=== PATIENT | male | born 2000 | race Caucasian/White ===

== ENCOUNTER 2019-03-11 09:32 | Emergency (ER) | payer SELFPAY | END 2019-03-11 10:16 | disposition left against medical advice (07) | LOC: JD.ED 09:32 | DX: Z53.21 Procedure and treatment not carried out due to patient leaving prior to being seen by health care provider (principal) | CPT/HCPCS: 99285-25 ==

== ENCOUNTER 2019-03-11 11:15 | Emergency (ER) | payer OTHER ==
--- NOTE | 2019-03-11 12:18 | EDM.PDOC ---
ED HPI GENERAL MEDICAL PROBLEM - General Chief Complaint: Chest Pain Stated Complaint: CHEST PAIN Time Seen by Provider: 03/11/19 11:34 Source of Information: Reports: Patient History Limitations: Reports: No Limitations - History of Present Illness INITIAL COMMENTS - FREE TEXT/NARRATIVE: 18 y/o male presents to ER with cc chest pain. He reports it started last evening about 0100 and lasted about 2 hours. He reports the pain as a sharp pain on the left side of his chest. He states it felt like his was racing then it would slow down and speed up again. It did not radiate to his jaw or back. He states it was difficulty to take a deep breath. He denies any nausea, vomiting, light headedness. Nothing made it better or worse. He has not experience the pain before. He does not have a history of sudden cardiac . He denies any use of recreational drugs. He does admit to smoking one pack daily and drinks energy drinks like BANG. 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 He is accompany by his friend. He reports the pain was a 7/10 prior to arrival but has since resolved. Onset Date: 03/10/19 Onset Time: 01:00 Duration: Intermittent Location: Reports: Chest Quality: Reports: Stabbing Severity: Mild Improves with: Reports: None Worsens with: Reports: Breathing Context: Reports: Activity Associated Symptoms: Denies: Confusion, Cough, Diaphoresis, Fever/Chills, Nausea /Vomiting, Shortness of Breath, Syncope Left Chest Pain Score (Numeric/FACES): 8 - Related Data Allergies Allergy/AdvReac Type Severity Reaction Status Date / Time No Known Allergies Allergy Verified 03/11/19 11:28 Home Meds: Home Meds . [No Known Home Meds] 03/11/19 [History] Past Medical History - Past Health History Medical/Surgical History: Denies Medical/Surgical History Social & Family History - Tobacco Use Smoking Status *Q: Current Every Day Smoker Years of Tobacco use: 2 Packs/Tins Daily: 1 - Caffeine Use Caffeine Use: Reports: Energy Drinks ED ROS GENERAL - Review of Systems Review Of Systems: See Below Constitutional: Denies: Fever, Chills HEENT: Reports: No Symptoms Respiratory: Denies: Shortness of Breath Cardiovascular: Reports: Chest Pain Endocrine: Reports: No Symptoms GI/Abdominal: Reports: No Symptoms : Reports: No Symptoms Musculoskeletal: Reports: No Symptoms Skin: Reports: No Symptoms Neurological: Reports: No Symptoms Psychiatric: Reports: Anxiety Hematologic/Lymphatic: Reports: No Symptoms Immunologic: Reports: No Symptoms ED EXAM, GENERAL - Physical Exam Exam: See Below Exam Limited By: No Limitations General Appearance: Alert, WD/WN, No Apparent Distress Neck: Normal Inspection, Supple, Non-Tender Respiratory/Chest: No Respiratory Distress, Lungs Clear, Normal Breath Sounds, No Accessory Muscle Use, Chest Non-Tender Cardiovascular: Normal Peripheral Pulses, Regular Rate, Rhythm, No Edema, No Gallop, No JVD, No Murmur, No Rub GI/Abdominal: Normal Bowel Sounds, Soft, Non-Tender, No Organomegaly, No Distention, No Abnormal Bruit, No Mass, Pelvis Stable Back Exam: Normal Inspection, Full Range of Motion Extremities: Normal Inspection, Normal Range of Motion, Non-Tender, No Pedal Edema, Normal Capillary Refill Neurological: Alert, Oriented, CN II-XII Intact, Normal Cognition, Normal Gait, Normal Reflexes, No Motor/Sensory Deficits Psychiatric: Normal Affect, Normal Mood Skin Exam: Warm, Dry, Intact, Normal Color, No Rash Lymphatic: No Adenopathy EKG INTERPRETATION EKG Date: 03/11/19 Time: 12:12 Rhythm: NSR Rate (Beats/Min): 78 [place]: Normal QRS: Normal ST-T: Normal QT: Normal Course - Vital Signs Last Recorded V/S: Last Vital Signs Temp 98.5 F 03/11/19 11:29 Pulse 72 03/11/19 11:29 Resp 16 03/11/19 11:29 BP 125/79 03/11/19 11:29 Pulse Ox 100 03/11/19 11:29 - Orders/Labs/Meds Orders: Active Orders 24 hr Category Date Time Status EKG Documentation Completion [RC] STAT Care 03/11/19 11:39 Active Chest 2V [CR] Stat Exams 03/11/19 12:06 Taken Labs: Laboratory Tests 03/11/19 03/11/19 03/11/19 Range/Units 11:55 11:55 11:55 WBC 3.11 L (4.23-9.07) K/mm3 RBC 5.41 (4.63-6.08) M/mm3 Hgb 15.8 (13.7-17.5) gm/L Hct 46.2 (40.1-51.0) % MCV 85.4 (79.0-92.2) fl MCH 29.2 (25.7-32.2) pg MCHC 34.2 (32.2-35.5) g/dl RDW Std Deviation 38.1 (35.1-43.9) fL Plt Count 152 L (163-337) K/mm3 MPV 11.0 (9.4-12.3) fl Neut % (Auto) 46.0 (34.0-67.9) % Lymph % (Auto) 30.5 (21.8-53.1) % Crenshaw % (Auto) 19.6 H (5.3-12.2) % Eos % (Auto) 2.9 (0.8-7.0) Baso % (Auto) 1.0 (0.1-1.2) % Neut # (Auto) 1.43 L (1.78-5.38) K/mm3 Lymph # (Auto) 0.95 L (1.32-3.57) K/mm3 Crenshaw # (Auto) 0.61 (0.30-0.82) K/mm3 Eos # (Auto) 0.09 (0.04-0.54) K/mm3 Baso # (Auto) 0.03 (0.01-0.08) K/mm3 Manual Slide Review Abnormal smear Sodium 141 (136-145) mEq/L Potassium 3.8 (3.5-5.1) mEq/L Chloride 104 (98-107) mEq/L Carbon Dioxide 25 (21-32) mEq/L Anion Gap 15.8 H (5-15) BUN 9 (7-18) mg/dL Creatinine 1.1 (0.7-1.3) mg/dL Est Cr Clr Drug Dosing TNP Estimated GFR (MDRD) > 60 (>60) mL/min BUN/Creatinine Ratio 8.2 L (14-18) Glucose 97 (74-106) mg/dL Calcium 9.2 (8.5-10.1) mg/dL Magnesium 2.0 (1.8-2.4) mg/dl Total Bilirubin 0.5 (0.2-1.0) mg/dL AST 23 (15-37) U/L ALT 29 (16-63) U/L Alkaline Phosphatase 63 (46-116) U/L Troponin I < 0.017 (0.00-0.056) ng/mL Total Protein 7.0 (6.4-8.2) g/dl Albumin 4.1 (3.4-5.0) g/dl Globulin 2.9 gm/dL Albumin/Globulin Ratio 1.4 (1-2) - Re-Assessments/Exams Free Text/Narrative Re-Assessment/Exam: 03/11/19 12:20 EKG revealed NSR rate 78 no ectopy. Patient is resting comfortable with friend at bedside, no c/o voice. 03/11/19 12:45 WBC 3.11 this may represent viral or stress induced. RBC 5.41 H & H 15.8/46.2 PLT 152 MON 19.6 NA+ 141 K+ 3.8 chl 104 CO2 23 BUM 9 creat.8 troponin 0.017. Magnesium 2.0 03/11/19 13:04 chest x-ray revealed no acute findings. I do not feel his chest pain is cardiac in nature. Differential diagnosis include but are not limited to GERD, anxiety. I will discharge home with smoking cessation information. I instructed him to stop drinking BANG and energy drink because they may be contributing to his symptoms. I instructed him to follow up with his PCP. He states he does not have one at this time but, he is gone to try to get into [facility]. Instructed to report to ER for any new or acute worsening symptoms. He verbalized understanding and is comfortable with plan for discharge. He is stable at time of discharge. Departure - Departure Time of Disposition: 13:07 Disposition: Home, Self-Care 01 Reason for Transfer *Q: Primary PCI Indicated Clinical Impression: Atypical chest pain, Anxiety GERD (gastroesophageal reflux disease) Qualifiers: Esophagitis presence: without esophagitis Qualified Code(s): K21.9 - Gastro- esophageal reflux disease without esophagitis Instructions: Indigestion, [id number], Coping with Quitting Smoking, Generalized Anxiety Disorder, Adult, Food Choices for Gastroesophageal Reflux Disease, Adult, Nonspecific Chest Pain, [id number], Steps to Quit Smoking Referrals: PCP,None [Primary Care Provider] - Forms: ED Department Discharge, ED Return to Work/School Form Additional Instructions: You have been diagnosis with atypical chest pain. Your EKG was normal, there were no abnormal beats. Your blood studies were normal except you have a low WBC and elevated Crenshaw count. This could be due to stress, illness or virus. I feel your symptoms could be due to GERD (acid reflex) or anxiety. I recommend you stop smoking and follow a low fat diet and not to eat 2 hours before going to bed. You should follow up with provider at [facility]. Return to the ER for any new or acute worsening symptoms. Return to the ER for any new or acute worsening symptoms. - My Orders Last 24 Hours: My Active Orders 03/11/19 11:39 EKG Documentation Completion [RC] STAT 03/11/19 12:06 Chest 2V [CR] Stat - Assessment/Plan Last 24 Hours: My Active Orders 03/11/19 11:39 EKG Documentation Completion [RC] STAT 03/11/19 12:06 Chest 2V [CR] Stat
--- NOTE | 2019-03-11 14:25 | CR ---
Chest: Two views of the chest were obtained. Comparison: No prior chest x-ray. Heart size and mediastinum are normal. Lungs are clear. Bony structures are unremarkable. Impression: 1. Nothing acute is seen on two-view chest x-ray. Diagnostic code #1
== END 2019-03-11 13:39 | disposition home or self-care (01) ==
LOC: JD.ED 11:15
DX: K21.9 Gastro-esophageal reflux disease without esophagitis (principal); F41.9 Anxiety disorder, unspecified; R07.89 Other chest pain; F17.210 Nicotine dependence, cigarettes, uncomplicated
CPT/HCPCS: 36415; 71046; 71046-26; 80053; 83735; 84484; 85025; 93005; 93010; 99285; 99285-25